=== PATIENT | female | born 1990 | race African-American/Black ===

== ENCOUNTER 2025-04-23 16:16 | Emergency (ER) | payer BC ==
[~2025-04-23] VITALS: Ht 172.7 cm; Wt 91.2 kg
[2025-04-23 16:39] VITALS: BP 131/90; TEMP 98; O2SAT 97
== END 2025-04-23 19:21 | disposition home or self-care (01) ==
LOC: ER 16:47
DX: Z00.00 Encounter for general adult medical examination without abnormal findings (principal); Z60.2 Problems related to living alone
CPT/HCPCS: 71046